=== PATIENT | female | born 1960 | race Caucasian/White ===

== ENCOUNTER 2018-01-15 06:40 | Day surgery (SDC) | payer OTHER ==
[~2018-01-15] VITALS: Ht 157.5 cm; Wt 43.2 kg
[~2018-01-15 06:40] MED LIST: VITAMIN D1000 UNIT PO
--- NOTE | 2018-01-15 10:20 | NUR ---
01/15/18 1020 Alessandra Mora 1012 PT ARRIVED TO PACU NONREACTIVE TO STIMULI WITH ORAL AIRWAY IN PLACE, JAW THRUST NEEDED TO MAINTAIN AIRWAY. RESP EVEN AND UNLABORED. 1015 PILLOW REMOVED AND PT HEAD TILTED BACK, JAW THRUST NO LONGER NEEDED TO MAINTAIN AIRWAY. ICE TO ABD. O2 DECREASE TO 6L VIA MASK, O2 SAT 100%.
--- NOTE | 2018-01-15 12:51 | NUR ---
1145: PATIENT BACK IN DAY SURGERY ROOM FROM PACU. PATIENT DROWSY. AWAKENS TO VOICE, BUT FALLS RIGHT BACK TO SLEEP. DENIES PAIN. DENIES NAUSEA. ABDOMINAL DRESSING INTACT WITH SCANT AMOUNT OF DRAINAGE ON UMBILICAL DRESSING. VS CHECKED. IV SITE WNL. SCDs ON. CALL LIGHT WITHIN REACH. 1200: CALLED PATIENT'S DAUGHTER TO GIVE HER AN UPDATE PER PATIENT'S REQUEST. 1240: VS CHECKED. PATIENT CONTINUES TO BE DROWSY. EASILY AWAKENS, BUT STILL FALLS BACK TO SLEEP QUICKLY. DENIES PAIN. CALL LIGHT WITHIN REACH.
[2018-01-15] MEDS ORDERED: OXYCODONE HCL5 MG PO (13:03)
--- NOTE | 2018-01-15 13:30 | NUR ---
1315: PATIENT AWAKENED ON OWN. C/O PAIN 12/13. MEDICATED FOR PAIN WITH IV DILAUDID. GIVEN ENSURE AND CHOCOLATE PUDDING. CALL LIGHT WITH IN REACH.
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
--- NOTE | 2018-01-15 15:34 | NUR ---
1400: PATIENT ASSISTED OOB AND TO BATHROOM USING PERSONAL CANE. VOID WITHOUT DIFFICULTY. PATIENT ASSISTED BACK TO ROOM. PATIENT GETTING DRESSED. 1430: PATIENT MEDICATED WITH 1 TAB OF OXYCODONE FOR PAIN. DAUGHTER AT BEDSIDE. IV DC'D WNL. TIP INTACT. DRESSING APPLIED. 1457: DISCHARGE INSTRUCTIONS GIVEN TO PATIENT. ICE PACK REFILLED. PATIENT DISCHARGED TO HOME WITH DAUGHTER VIA WHEELCHAIR.
== END 2018-01-15 14:57 | disposition home or self-care (01) ==
LOC: DS 06:40
PROVIDERS: Colon & Rectal Surgery
PROC: BF13YZZ Fluoroscopy of Gallbladder and Bile Ducts using Other Contrast (ICD-10-PCS; 2018-01-15)
PROC: 0FT44ZZ Resection of Gallbladder, Percutaneous Endoscopic Approach (ICD-10-PCS; principal; 2018-01-15 08:00)
DX: K81.1 Chronic cholecystitis (principal); K82.8 Other specified diseases of gallbladder; J45.909 Unspecified asthma, uncomplicated; K21.9 Gastro-esophageal reflux disease without esophagitis; E55.9 Vitamin D deficiency, unspecified; E78.5 Hyperlipidemia, unspecified; F31.9 Bipolar disorder, unspecified; F17.210 Nicotine dependence, cigarettes, uncomplicated; Z88.5 Allergy status to narcotic agent; Z88.8 Allergy status to other drugs, medicaments and biological substances
CPT/HCPCS: 00840; 74300; J0330; J0694; J1100; J1170; J1200; J1644; J1885; J2250; J2405; J2704; J2765; J3010; J7120; Q9967